=== PATIENT | female | born 1950 | race Caucasian/White ===

== ENCOUNTER → 2018-10-26 | Outpatient (CLI) | payer MEDICARE | LOC: M.RAD 09:39 | DX: Z12.31 Encounter for screening mammogram for malignant neoplasm of breast (principal) ==

== ENCOUNTER → 2019-12-06 | Outpatient (CLI) | payer MEDICARE, OTHER | LOC: M.RAD 12-04 10:39 | PROVIDERS: ATTEND Nurse Practitioner Family | DX: Z12.31 Encounter for screening mammogram for malignant neoplasm of breast (principal); Z78.0 Asymptomatic menopausal state ==

== ENCOUNTER 2021-02-12 20:31 | Inpatient (IN) | payer MEDICARE, OTHER ==
[~2021-02-12] VITALS: Ht 162.6 cm; Wt 81.6 kg
[2021-02-12 20:45] VITALS: BP 98/48
[2021-02-12 21:06] LABS: ABSOLUTE LYMPHOCYTES 0.4 thou/uL (0.8-5.3); ABSOLUTE MONOCYTES 0.3 thou/uL (0.0-1.2); ABSOLUTE NEUTROPHILS 4.1 thou/uL (1.6-8.1); BASOPHILS 0.9 %; HEMATOCRIT 39.4 % (37.0-47.0); HEMOGLOBIN 13.3 gm/dL (12.0-15.0); MCHC 33.8 g/dL (28.0-37.0); MCV 79.9 fL (80.0-100.0); MONOCYTES 6.7 %; MPV 7.9 fl. (7.2-11.1); NUCLEATED RBCS 0 /100WBC; PLATELET COUNT* 238 thou/uL (150-400); POLYS 83.4 %; RBC 4.93 mil/uL (4.20-5.00); RDW-CV 14.3 % (10.5-14.5); WBC 4.9 thou/uL (4.0-11.0)
[2021-02-12 21:10] LABS: CALCIUM 8.1 mg/dL (8.5-10.1); CREATININE 1.4 mg/dL (0.6-1.3); POTASSIUM 3.1 mmol/L (3.5-5.1)
[2021-02-12 21:26] LABS: ALBUMIN 3.2 g/dL (3.4-5.0); MAGNESIUM 1.9 mg/dL (1.8-2.4); TOTAL PROTEIN 7.5 g/dL (6.4-8.2)
[2021-02-13 02:00] VITALS: BP 92/50
[2021-02-13 06:00] VITALS: BP 100/54
--- NOTE | 2021-02-13 07:53 | EKG ---
[place] [address] ELECTROCARDIOGRAM REPORT Name: ROLY LIN Room: [place] [address] ADM IN [facility].#: [id number] Admission: 02/12/21 Attend Phys: Contreras Escobar, Discharge: Date of : 54 Date of Service: 02/12/212033 Report #: [id number] THIS REPORT FOR: //name// [facility] ED Test Date: 2021-02-12 Test Time: 20:34:24 Pat Name: ROLY LIN Department: Room: [facility] Gender: F 911 Emergency Dispatcher: : 1950 Requested By: Valencia Tan Order Number: [id number] MD: Alexis Pisano Measurements Intervals [place] Rate: 83 P: 52 MT: 154 QRS: -22 QRSD: 95 T: 77 QT: 354 QTc: 416 Interpretive Statements Sinus rhythm Borderline left axis deviation Low voltage, precordial leads RSR' in V1 or V2, probably normal variant Nonspecific repol abnormality, lateral leads Baseline wander in lead(s) I,III,aVR,aVL,aVF,V1,V2,V3,V4,V5,V6 No previous ECG available for comparison Electronically Signed On 02-13-2021 7:53:22 CDT by Alexis Pisano [email or web address] <ELECTRONICALLY SIGNED> By: Alexis Pisano MD, [facility] 02/13/21 0753 [id number] [phone] Alexis Pisano MD, [facility] /EPI
[2021-02-13 10:00] VITALS: BP 89/47
[2021-02-13 14:00] VITALS: BP 95/52
[2021-02-13 14:25] LABS: CREATININE 1.4 mg/dL (0.6-1.3); POTASSIUM 3.6 mmol/L (3.5-5.1)
[2021-02-13 14:28] LABS: MAGNESIUM 2.1 mg/dL (1.8-2.4); PHOSPHORUS* 2.9 mg/dL (2.5-4.9)
[2021-02-13 14:29] LABS: APTT 29.1 Seconds (25.0-31.3)
[2021-02-13] MEDS ORDERED: LIPITOR 20 MG T20 M1 PO (14:51)
[2021-02-13] MEDS ORDERED: COZAAR 25 MG TA25 M1 PO (14:52)
[2021-02-13] MEDS ORDERED: GLUMETZA1000 (14:52)
[2021-02-13] MEDS ORDERED: GLIPIZIDE 10 MG10 MG PO (14:52)
[2021-02-13 18:34] VITALS: BP 108/64
[2021-02-13 21:56] LABS: URINE BILIRUBIN NEGATIVE (Negative); URINE BLOOD NEGATIVE (Negative); URINE CLARITY CLEAR; URINE COLOR YELLOW; URINE GLUCOSE-RANDOM TRACE (Negative); URINE KETONES 1+ (Negative); URINE LEUKOCYTES-REFLEX NEGATIVE (Negative); URINE NITRITE-REFLEX NEGATIVE (Negative); URINE PROTEIN 1+ (Negative); URINE SPECIFIC GRAVITY 1.025 (1.005-1.030); URINE UROBILINOGEN 0.2 E.U./dl (0.2-1.0)
[2021-02-13 22:30] VITALS: BP 107/61
[2021-02-14 02:30] VITALS: BP 106/47
[2021-02-14 02:59] LABS: INFLUENZA A ANTIGEN Negative (Negative); INFLUENZA B ANTIGEN Negative (Negative)
[2021-02-14 10:00] VITALS: BP 113/62
[2021-02-14 12:45] VITALS: BP 115/66
--- NOTE | 2021-02-14 14:43 | NUR ---
CM spoke with son via phone. Pt normally resides at home alone, independent, though son has noticed some changes in cognition. 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 CM ased Dr to call son to discuss if anything can be done while inpt. No DME. No hx of HH or SNF. Therapies to eval. Goal is home at dc. If Pt wants HH, fax referral to [facility] [phone]
[2021-02-14 16:45] VITALS: BP 111/68
[2021-02-14 18:30] VITALS: BP 111/68
[2021-02-14 22:00] VITALS: BP 115/66
[2021-02-15 00:11] VITALS: BP 106/66
[2021-02-15 04:24] VITALS: BP 110/66
--- NOTE | 2021-02-15 05:54 | NUR ---
PT AO X1 SITTING IN BED AT TIME OF ASSESSMENT. SHE IS TRYING TO GET OUT OF BED AND HAS THE TELEMETRY BOX OFF, AND IN HER PURSE. PT IS PLEASANT ANSWERING QUESTIONS EASILY AND HAS NO COMPLAINTS. SHE IS ON RA SATTING APPROPRIATELY. LUNGS CTA/DIM WITH NO COUGH. VSS. PT DID HAVE A LARGE AMOUNT OF DIARRHEA LAST PM. PT HAS REMOVED TELEMETRY A COUPLE TIMES BUT IS NSR IN THE 80S. PT IS ANTICIPATING DISCHARGE TODAY.
[2021-02-15 08:07] VITALS: BP 125/97
[2021-02-15 09:35] LABS: CALCIUM 8.2 mg/dL (8.5-10.1); CREATININE 1.1 mg/dL (0.6-1.3); POTASSIUM 3.4 mmol/L (3.5-5.1)
[2021-02-15] MEDS ORDERED: MACROBID 100 M100 M1 PO (10:26)
[2021-02-15] MEDS ORDERED: VENTOLIN HFA 1818 GM INH (10:26)
[2021-02-15] MEDS ORDERED: DEXAMETHASONE6 MG PO (10:26)
[2021-02-15] MEDS ORDERED: TESSALON PERLE100 MG PO (10:26)
[2021-02-15 11:50] VITALS: BP 125/97
[2021-02-15 12:12] VITALS: BP 123/70
--- NOTE | 2021-02-15 12:33 | NUR ---
FAXED PAPERWORK TO [facility] AND LEFT VM FOR THEM TO CALL. UPDATED PATIENT'S RN.
[2021-02-15 13:33] VITALS: BP 125/97
--- NOTE | 2021-02-15 14:13 | NUR ---
PT ALERT AND ORIENTED TO PERSON, PLACE AND SITUATION. SHE HAS PPOR SHORT TERM MEMORY AND EASILY FORGETS WHAT SHE IS DOING. PT DISCHARGED TODAY WITH HOME HEALTH AT 1300, SHE WAS WHEELED OUT BY STAFF WITH ALL OF HER BELONGINGS AND DISCHARGE INSTRUCTIONS. WENT OVER D/C INSTRUCTIONS WITH PATIENT, SON ADN DAUGHTER IN LAW. IV REMOVED AND TELEPACK, PT GIVEN PHONE NUMBER FOR [facility], AND TOLD TO SENIOR [employer] DEVELOPER PRESCRIPTIONS FROM HER PHARMACY.
== END 2021-02-15 14:10 | disposition home health service (06) | DRG 177 ==
LOC: M.ERS 20:31 → M.TBA-ER 22:10 → M.ORTHSURG 02-14 18:34
PROVIDERS: Emergency Medicine; Internal Medicine; ADMIT Internal Medicine; ATTEND Internal Medicine
PROC: XW033E5 Introduction of Remdesivir Anti-infective into Peripheral Vein, Percutaneous Approach, New Technology Group 5 (ICD-10-PCS; principal; 2021-02-14)
DX: U07.1 COVID-19 (principal); G93.41 Metabolic encephalopathy; J12.82 Pneumonia due to coronavirus disease 2019; J96.00 Acute respiratory failure, unspecified whether with hypoxia or hypercapnia; N30.00 Acute cystitis without hematuria; E11.9 Type 2 diabetes mellitus without complications; E66.9 Obesity, unspecified; Z68.30 Body mass index [BMI] 30.0-30.9, adult

== ENCOUNTER 2021-03-15 18:54 | Emergency (ER) | payer MEDICARE, OTHER ==
[~2021-03-15] VITALS: Ht 162.6 cm; Wt 104.3 kg
[~2021-03-15 18:54] MED LIST: COZAAR 25 MG TA25 M1 PO; DEXAMETHASONE6 MG PO; GLIPIZIDE 10 MG10 MG PO; GLUMETZA1000; LIPITOR 20 MG T20 M1 PO; MACROBID 100 M100 M1 PO; TESSALON PERLE100 MG PO; VENTOLIN HFA 1818 GM INH
[2021-03-15 21:04] VITALS: BP 114/69
== END 2021-03-15 21:05 | disposition home or self-care (01) ==
LOC: M.ERS 18:54
DX: S01.01XA Laceration without foreign body of scalp, initial encounter (principal); E11.9 Type 2 diabetes mellitus without complications; Z79.2 Long term (current) use of antibiotics; Z79.899 Other long term (current) drug therapy; W01.198A Fall on same level from slipping, tripping and stumbling with subsequent striking against other object, initial encounter; Y93.89 Activity, other specified; Y92.89 Other specified places as the place of occurrence of the external cause; Y99.8 Other external cause status